=== PATIENT | female | born 1970 | race Caucasian/White ===

== ENCOUNTER 2020-11-21 16:34 | Emergency (ER) | payer OTHER ==
[2020-11-21 18:46] LABS: HEMOGLOBIN 12.4 gm/dl (12.3-15.3); RED BLOOD COUNT 4.32 M/UL (4.00-5.10); WHITE BLOOD COUNT 6.2 K/UL (4.5-11.0)
[2020-11-21 19:04] LABS: BUN/CREATININE RATIO 32 (0-10)
== END 2020-11-21 20:33 | disposition home or self-care (01) ==
LOC: ER1 16:34
PROVIDERS: Physician Assistant Medical
DX: M54.2 Cervicalgia (principal); R51.9 Headache, unspecified; V49.40XA Driver injured in collision with unspecified motor vehicles in traffic accident, initial encounter; Y92.410 Unspecified street and highway as the place of occurrence of the external cause; E11.9 Type 2 diabetes mellitus without complications
CPT/HCPCS: 71045; 72125; 72131; 80053; 84484; 85025; 99284